=== PATIENT | female | born 1950 | race Caucasian/White ===

== ENCOUNTER 2018-01-20 19:36 | Emergency (ER) | END 2018-01-21 01:26 | disposition left against medical advice (07) ==

== ENCOUNTER 2018-01-21 05:20 | Inpatient (IN) | END 2018-01-23 13:39 | disposition home or self-care (01) | DRG 419 ==

== ENCOUNTER 2018-02-13 09:33 | Outpatient (CLI) | END 2018-02-13 15:47 | disposition home or self-care (01) ==

== ENCOUNTER 2019-04-24 14:22 | Inpatient (IN) | payer OTHER ==
[~2019-04-24] VITALS: Ht 147.3 cm; Wt 70.9 kg
[~2019-04-24 14:22] MED LIST: ALBU18HF INHALATION; AMIT25TA9 PO; AMLO5TAB4 PO; BECL8.7A5 INH; CHOL500051 PO; FLUT16SP17 NASAL; GABA-526 PO; HYDR25TA6 PO; IBUP-1542 PO; LORA-186 PO; LOSA100T15 PO; MAG355OR15 PO; MONT10TA21 PO; OMEP40CA6 PO; PULM90 INHALATION
[2019-04-24] MEDS ORDERED: NITROGLYCERIN 2% 1 GM OINT PKT TD STA (15:16)
[2019-04-24] MEDS ORDERED: morphine 4 MG/ML VIAL IV STA (15:16)
[2019-04-24] MEDS ORDERED: ONDANSETRON 4 MG INJ IV STA (15:16)
[2019-04-24] MEDS ORDERED: ASPIRIN 325 MG TAB PO STA (15:16)
[2019-04-24] MEDS ORDERED: SOD CHLORIDE 0.9% 500 ML IV STA (15:16)
[2019-04-24] MEDS ORDERED: BECL10.62 IH (15:58)
[2019-04-24] MEDS ORDERED: ALBU18HF INHALATION (15:58)
[2019-04-24] MEDS ORDERED: AMIT25TA9 PO (15:59)
[2019-04-24] MEDS ORDERED: CHOL100062 PO (15:59)
[2019-04-24] MEDS ORDERED: GABA-526 PO (15:59)
[2019-04-24] MEDS ORDERED: LOSA100T15 PO (16:00)
[2019-04-24] MEDS ORDERED: MONT10TA24 PO (16:00)
[2019-04-24] MEDS ORDERED: FLUT16SP17 NASAL (16:01)
[2019-04-24] MEDS ORDERED: HYDR25TA6 PO (16:01)
[2019-04-24] MEDS ORDERED: LORA10TA3 PO (16:02)
[2019-04-24] MEDS ORDERED: AMLO5TAB4 PO (16:03)
[2019-04-24] MEDS ORDERED: FLOV110 INHALATION (16:04)
[2019-04-24] MEDS ORDERED: IOHEXOL 100 ML ONE (17:43)
[2019-04-24] MEDS ORDERED: SOD CHLORIDE 0.9% 100 ML ONE (17:43)
[2019-04-24] MEDS ORDERED: ONDANSETRON 4 MG INJ IV PRN ×2 (19:00→20:30)
[2019-04-24] MEDS ORDERED: ACETAMINOPHEN 325 MG TAB PO PRN (19:00)
--- NOTE | 2019-04-24 19:09 | ERD ---
ER Documentation Chief Complaint Chief Complaint LEFT FACIAL NUMBESS AND TINGLING; CHEST PAIN LWKT- 0700 THIS AM HPI Very pleasant 68-year-old female presents to the emergency room complaining of chest pain. A in person drop pit worker was used. The patient states that over the last several days she has noted some chest discomfort in the left side of her chest with associated numbness and tingling to the left jaw and left upper ex tremity. She denies any slurred speech or motor weakness. She denies any vision changes. Her chest pain is pressure-like and present currently. No prior history of cardiac etiology. No significant exertional symptoms. ROS All systems reviewed and are negative except as per history of present illness. Medications Home Meds Reported Medications Fluticasone Propionate* (Flovent* HFA 110) 12 Gm Inha, 1 PUFF INHALATION BID, #1 INHALER 04/24/19 Amlodipine Besylate* (Norvasc*) 5 Mg Tablet, 5 MG PO DAILY, TAB 04/24/19 Loratadine* (Loratadine*) 10 Mg Tablet, 10 MG PO DAILY, #30 TAB 04/24/19 Fluticasone Propionate* (Fluticasone Propionate* Nasal) 50 Mcg/[place] - 16 Gm [place].susp, 1 SPRAY NASAL DAILY, #1 BOTTLE TO EACH NOSTRIL 04/24/19 Hydrochlorothiazide* (Hydrochlorothiazide*) 25 Mg Tab, 25 MG PO DAILY, #30 TAB 04/24/19 Losartan Potassium* (Losartan Potassium*) 100 Mg Tablet, 100 MG PO DAILY, TAB 04/24/19 Montelukast Sodium* (Montelukast Sodium*) 10 Mg Tablet, 10 MG PO QHS, #30 TAB 04/24/19 Cholecalciferol* (Vitamin D3*) 1,000 Unit Tablet, 1000 UNIT PO DAILY, TAB 04/24/19 Gabapentin* (Gabapentin*) 600 Mg Tablet, 600 MG PO TID, #90 TAB 04/24/19 Amitriptyline Hcl* (Amitriptyline Hcl*) 25 Mg Tablet, 25 MG PO QHS, #30 TAB 04/24/19 Beclomethasone Dipropionate (Qvar Redihaler (80 MCG)) 10.6 Gm Hfa.aeroba, 10.6 GM IH BID, INH 04/24/19 Albuterol Sulfate* (Ventolin HFA*) 18 Gm Hfa.aer.ad, 2 PUFF INHALATION Q4H, #1 INHALER 04/24/19 Discontinued Reported Medications Cholecalciferol (Vitamin D3) (Vitamin D3) 50,000 Unit Capsule, 50789 UNIT PO, CAP Pt takes once a week 01/21/18 Amitriptyline Hcl* (Amitriptyline Hcl*) 25 Mg Tablet, 25 MG PO QHS, #30 TAB 01/21/18 Ibuprofen* (Ibuprofen*) 600 Mg Tablet, 600 MG PO Q8, TAB 01/21/18 Beclomethasone Dip* (Qvar 80*) 7.3 Gm Inha, 2 PUFF INH BID, #1 INHALER 01/21/18 Albuterol Sulfate* (Ventolin HFA*) 18 Gm Hfa.aer.ad, 2 PUFF INHALATION Q4H, #1 INHALER 01/21/18 Gabapentin* (Gabapentin*) 600 Mg Tablet, 600 MG PO TID, #90 TAB 01/21/18 Losartan Potassium* (Losartan Potassium*) 100 Mg Tablet, 100 MG PO DAILY, TAB 01/21/18 Hydrochlorothiazide (Hydrochlorothiazide) 25 Mg Tablet, 25 MG PO DAILY, #30 TAB 01/21/18 Fluticasone Propionate* (Fluticasone Propionate* Nasal) 50 Mcg/[place] - 16 Gm [place].susp, 2 SPRAYS NASAL DAILY, #1 BOTTLE TO EACH NOSTRIL 01/21/18 Omeprazole* (Omeprazole*) 40 Mg Capsule.dr, 40 MG PO DAILY, #30 CAP 01/21/18 Budesonide* (Pulmicort* Flexhaler) 90 Mcg Aer.pow.ba, 1 PUFF INHALATION BID, #1 EA 01/21/18 Loratadine* (Claritin*) 10 Mg Tablet, 10 MG PO DAILY, TAB 11/13/15 Montelukast Sodium* (Singulair*) 10 Mg Tablet, 10 MG PO QHS, #30 TAB 11/13/15 Amlodipine Besylate* (Norvasc*) 5 Mg Tablet, 5 MG PO DAILY, TAB 11/13/15 Discontinued Scripts Mag Hydrox/Al Hydrox/Simeth (Maalox Max Strength Susp) 769 Ml Oral.susp, 30 ML PO QID, #769 Prov:YUAN MORA MD 11/13/15 Allergies Allergies: Coded Allergies: Penicillins (Verified Allergy, Unknown, 04/24/19) shellfish derived (Verified Allergy, Unknown, "CLOSING OF THE THROAT", 04/24/19) Uncoded Allergies: SEA FOODS (Allergy, Unknown, 11/13/15) PMhx/Soc History of Surgery: Yes (ligation 42 years ago) Anesthesia Reaction: No Hx Neurological Disorder: No Hx Respiratory Disorders: No Hx Cardiac Disorders: Yes (on BP meds) Hx Psychiatric Problems: No Hx Miscellaneous Medical Probl: No Hx Alcohol Use: No Hx Substance Use: No Hx Tobacco Use: No Smoking Status: Never smoker FmHx Family History: No diabetes Physical Exam Vitals Vital Signs Date Temp Pulse Resp B/P (MAP) Pulse Ox O2 O2 Flow FiO2 Time Delivery Rate 04/24/19 59 18 109/62 96 Room Air 17:55 (78) 04/24/19 63 18 101/51 96 Room Air 16:30 (68) 04/24/19 Nasal 2 15:35 Cannula 04/24/19 73 18 128/54 100 Nasal 2.0 15:30 (78) Cannula 04/24/19 98.5 82 19 130/61 95 14:24 (84) Physical Exam General: Well developed, well nourished, no acute distress Head: Normocephalic, atraumatic. Eyes: Pupils equally reactive, EOM intact ENT: Moist mucous membranes Neck: Supple, no lymphadenopathy Respiratory: Lungs clear bilaterally, no distress Cardiovascular: RRR, no murmurs, rubs, or gallops Abdominal: Soft, non-tender, non-distended, no peritoneal signs : Deferred MSK: No edema, no unilateral swelling, 5/5 strength Neurologic: Alert and oriented, moving all extremities, normal speech, no focal weakness, no cerebellar signs Skin: No rash Psych: Normal mood Result Diagram: 04/24/19 1511 04/24/19 1511 Results 24 hrs Laboratory Tests Test 04/24/19 15:11 04/24/19 15:46 White Blood Count 6.0 10^3/ul Red Blood Count 4.02 10^6/ul Hemoglobin 11.4 g/dl Hematocrit 35.3 % Mean Corpuscular Volume 87.8 fl Mean Corpuscular Hemoglobin 28.4 pg Mean Corpuscular Hemoglobin Concent 32.3 g/dl Red Cell Distribution Width 13.4 % Platelet Count 226 10^3/UL Mean Platelet Volume 11.7 fl Immature Granulocytes % 0.300 % Neutrophils % 65.8 % Lymphocytes % 22.6 % Monocytes % 8.5 % Eosinophils % 2.3 % Basophils % 0.5 % Nucleated Red Blood Cells % 0.0 /100WBC Immature Granulocytes # 0.020 10^3/ul Neutrophils # 3.9 10^3/ul Lymphocytes # 1.4 10^3/ul Monocytes # 0.5 10^3/ul Eosinophils # 0.1 10^3/ul Basophils # 0.0 10^3/ul Nucleated Red Blood Cells # 0.0 10^3/ul Sodium Level 137 mmol/L Potassium Level 4.1 mmol/L Chloride Level 102 mmol/L Carbon Dioxide Level 27 mmol/L Anion Gap 8 Blood Urea Nitrogen 20 mg/dl Creatinine 0.69 mg/dl Est Glomerular Filtrat Rate mL/min > 60 mL/min Glucose Level 107 mg/dl Calcium Level 8.9 mg/dl Troponin I < 0.012 ng/ml Prothrombin Time 12.5 Sec Prothrombin Time Ratio 1.0 INR International Normalized Ratio 0.92 Activated Partial Thromboplast Time 25.1 Sec D-Dimer 1064.76 ng/ml D-Dimer Comment Current Medications Medications Dose Sig/Adán Start Time Status Last (Trade) Ordered Route PRN Stop Time Admin Dose Reason Admin Sodium 500 ml @ Q1H STAT 04/24/19 DC 04/24/19 Chloride 500 mls/hr IV 15:16 15:27 04/24/19 16:15 Aspirin 325 mg ONCE STAT 04/24/19 DC 04/24/19 (Aspirin) PO 15:16 15:27 04/24/19 15:18 1 inch ONCE STAT 04/24/19 DC 04/24/19 Nitroglycerin TD 15:16 15:27 04/24/19 15:18 (Nitroglyceri n 2% Oint) Morphine 4 mg ONCE STAT 04/24/19 DC 04/24/19 Sulfate IV 15:16 15:27 (morphine) 04/24/19 15:18 Ondansetron 4 mg ONCE STAT 04/24/19 DC 04/24/19 HCl (Zofran IV 15:16 15:26 Inj) 04/24/19 15:18 IV Flush 10 ml STK-MED 04/24/19 DC (NS 10 ml) ONCE .ROUTE 17:43 04/24/19 17:44 Sodium 100 ml @ ud STK-MED 04/24/19 DC Chloride ONCE .ROUTE 17:43 04/24/19 17:44 Iohexol 100 ml @ ud STK-MED 04/24/19 DC ONCE .ROUTE 17:43 04/24/19 17:44 Ondansetron 4 mg ER BRIDGE 04/24/19 HCl (Zofran PRN IV 19:00 Inj) NAUSEA/VOMITI 04/25/19 18:59 NG 650 mg ER BRIDGE 04/24/19 Acetaminophen PRN PO 19:00 (Tylenol .MILD PAIN 04/25/19 18:59 Tab) 1-3 OR TEMP Procedures/MDM EKG, MONITORS, & DIAGNOSTIC IMAGING: EKG: I reviewed and interpreted a 12-lead EKG. Rhythm: Normal sinus rhythm, bifascicular block ST Changes: No contiguous ST segment elevations T waves: No contiguous T wave inversions Impression: No evidence of acute cardiac ischemia Repeat EKG: EKG: I reviewed and interpreted a 12-lead EKG. Rhythm: Normal sinus rhythm, bifascicular block ST Changes: No contiguous ST segment elevations T waves: No contiguous T wave inversions Impression: No evidence of acute cardiac ischemia Chest x-ray: I reviewed and interpreted a 1 view of the chest Mediastinum: No enlargement Cardiac silhouette: No cardiomegaly Airspace: Clear lung barrios bilaterally without evidence of pneumothorax Bones: No evidence of fracture VQ scan is pending: To be followed by admitting team PROCEDURES: None LAB INTERPRETATION: * Positive d-dimer, negative troponin MEDICAL DECISION MAKING: The patient's history, physical exam and clinical presentation is concerning for possible cardiogenic etiology and acute coronary syndrome. The patient does describe some mild pleuritic component to this. Therefore a d-dimer would be appropriate given Wells low risk criteria. The patient describes paresthesias but this is very consistent more with cardiac etiology rather than stroke or central nervous system process. She has a nonfocal neurologic exam and her presentation description of the symptoms are not consistent with stroke. Based on the patient's clinical exam and history and risk factors, I have a much lower clinical concern for acute aortic dissection, pneumothorax, pneumonia, cardiac tamponade HEART Score: 4 MACE Rate: 16.6% Shared Decision Making: We had a conversation regarding risk stratification, MACE rate, and the risks, benefits, alternatives of disposition planning options. Disposition planning: Admit to rule out ACS ER COURSE: * Aspirin nitro morphine provided with improved to the otology. The patient is a positive d-dimer. The patient thinks he might be allergic to iodine contrast therefore CTA was canceled and the patient will be admitted for VQ scan. No indication for emergent anticoagulation at this time given low pretest probability for pulmonary embolism. * Patient and family were updated. She is chest pain-free. CONSULTATION: None DISPOSITION PLAN: Telemetry admission for management of chest pain to rule out acute coronary syndrome, serial enzymes, risk stratification and consideration of provocative testing CONSULTATION: Accepting care team and consultations: I discussed the current laboratory data, diagnostic imaging and emergency care provided. Admitting team: Dr. Sharpe Admitting team indication: Insurance directed Departure Diagnosis: Primary Impression: Chest pain Chest pain type: unspecified Qualified Codes: R07.9 - Chest pain, unspecified Condition: Stable FLORIN ENAMORADO MD April 24, 2019 19:09
[2019-04-24] MEDS ORDERED: DOCUSATE SODIUM 100 MG CAP PO PRN (20:30)
[2019-04-24] MEDS ORDERED: BISACODYL (EC) 5 MG TAB PO PRN (20:30)
[2019-04-24] MEDS ORDERED: NACL 0.9% 3 ML SYG IV SCH (20:30)
[2019-04-24] MEDS ORDERED: NITROGLYCERIN (SL) 0.4 MG TAB SL PRN (20:30)
[2019-04-25] VITALS (14 sets, daily range): BP systolic 96–137; BP diastolic 52–67; PULSE 58–87; RESP 18–20; Ht 147.3 cm; Wt 70.9 kg
--- NOTE | 2019-04-25 03:24 | HP ---
Date/Time of Note Date/Time of Note DATE: 04/25/19 TIME: 03:24 Assessment/Plan VTE Prophylaxis Pharmacological prophylaxis: LMWH Lines/Catheters IV Catheter Type (from [facility]): [facility] Assessment/Plan Hospital Course This is a 68-year-old female being admitted to the telemetry floor for observation for: #1 chest pain: Rule out ACS versus pulmonary embolism. D-dimer in the emergency department was elevated. Cardiac enzymes x3, the first that was negative. D- dimer 1000+, will check an echocardiogram. EKG does show prolonged QT and a right bundle branch block. Will consult cardiology . We will check hemoglobin A C, lipid panel, TSH. VQ scan was also ordered by the emergency department await the results. #2 elevated d-dimer: Venous bilateral lower extremity ultrasound did not show any acute DVTs, there was a Ravi's cyst. In the meantime we will give a dose of therapeutic Lovenox while we await the results of the VQ scan. #3 hypertension: Resume patient's home medications #4 asthma: Currently not in any respiratory distress. PRN inhalers as indicated #5 DVT GI prophylaxis: Lovenox, no GI prophylaxis indicated Further treatment strategy will be implemented as per the clinical course. Result Diagram: 04/24/19 1511 04/24/19 1511 Results 24hrs Laboratory Tests Test 04/24/19 15:11 04/24/19 15:46 04/24/19 21:39 White Blood Count 6.0 # Red Blood Count 4.02 L Hemoglobin 11.4 L Hematocrit 35.3 L Mean Corpuscular Volume 87.8 Mean Corpuscular Hemoglobin 28.4 L Mean Corpuscular Hemoglobin Concent 32.3 Red Cell Distribution Width 13.4 Platelet Count 226 Mean Platelet Volume 11.7 H Immature Granulocytes % 0.300 Neutrophils % 65.8 Lymphocytes % 22.6 Monocytes % 8.5 Eosinophils % 2.3 Basophils % 0.5 Nucleated Red Blood Cells % 0.0 Immature Granulocytes # 0.020 Neutrophils # 3.9 Lymphocytes # 1.4 Monocytes # 0.5 Eosinophils # 0.1 Basophils # 0.0 Nucleated Red Blood Cells # 0.0 Sodium Level 137 Potassium Level 4.1 Chloride Level 102 Carbon Dioxide Level 27 Anion Gap 8 Blood Urea Nitrogen 20 Creatinine 0.69 Est Glomerular Filtrat Rate mL/min > 60 Glucose Level 107 Calcium Level 8.9 Troponin I < 0.012 < 0.012 Prothrombin Time 12.5 Prothrombin Time Ratio 1.0 INR International Normalized Ratio 0.92 Activated Partial Thromboplast Time 25.1 D-Dimer 1064.76 H D-Dimer Comment Creatine Kinase 60 Creatine Kinase Index 1.6 Creatinine Kinase MB (Mass) 0.96 HPI/ROS Admit Date/Time Admit Date/Time April 24, 2019 at 18:53 Hx of Present Illness Chief complaint: Chest pain this is a 60-year-old female who presented to the emergency department complaining of chest pain. Patient reported that over the last couple days she has had left-sided chest pain with radiation down the left arm as well as to the jaw. She has had associated numbness and tingling. She denies any slurred speech or loss of limb function or weakness. Patient reports that the pain was a pressure-like sensation. She denies any lower extremity edema or shortness of breath. Allergies: Penicillin, shellfish Medications: See MEET TORRES Const: As per HPI s Eyes : No pain discharge or redness or change in visual acuity ENT: No pain, sore throat, congestion, congestion, dysphagia or discharge Respiratory: No shortness of breath, cough, sputum, wheezing, or pleuritic pain Cardiovascular: As per HPI GI : no change in appetite, abdominal pain, nausea, vomiting, diarrhea, constipation, or change in the color his stool Genitourinary: No dysuria, hematuria, flank pain , discharge or CVA tenderness Musculoskeletal: No joint pain, back pain, neck pain, restricted range of motion in neck or joints Skin: No rash, bruising or hives Neuro: No headache, dizziness, syncope, seizure, focal weakness Endocrine: No polyuria, polydipsia, temperature intolerance Psych: No hallucination, depression, anxiety or suicidal ideation PMH/Family/Social Past Medical History Hypertension, asthma Medications Current Medications Ondansetron HCl (Zofran Inj) 4 mg ER BRIDGE PRN IV NAUSEA/VOMITING; Start 04/24/19 at 19:00; Stop 04/25/19 at 18:59 Acetaminophen (Tylenol Tab) 650 mg ER BRIDGE PRN PO .MILD PAIN 1-3 OR TEMP; Start 04/24/19 at 19:00; Stop 04/25/19 at 18:59 IV Flush (NS 3 ml) 3 ml PER PROTOCOL IV ; Start 04/24/19 at 20:30 Ondansetron HCl (Zofran Inj) 4 mg Q6H PRN IV NAUSEA/VOMITING; Start 04/24/19 at 20:30 Nitroglycerin (Nitroglycerin (Sl Tab) 0.4 Mg) 1 tab Q5M PRN SL .CHEST PAIN; Start 04/24/19 at 20:30 Acetaminophen (Tylenol Tab) 650 mg Q6H PRN PO .PAIN 1-3 OR TEMP; Start 04/24/19 at 20:30 Docusate Sodium (Colace) 100 mg Q12H PRN PO .CONSTIPATION; Start 04/24/19 at 20:30 Bisacodyl (Dulcolax) 5 mg DAILY PRN PO .CONSTIPATION; Start 04/24/19 at 20:30 Coded Allergies: Penicillins (Verified Allergy, Unknown, 04/24/19) shellfish derived (Verified Allergy, Unknown, "CLOSING OF THE THROAT", 04/24/19) Uncoded Allergies: SEA FOODS (Allergy, Unknown, 11/13/15) Past Surgical History Cholecystectomy, hysterectomy Past Surgical Hx: other Family History Significant Family History: no pertinent family hx Social History Alcohol Use: none Smoking Status: Never smoker Drug Use: none Exam/Review of Systems Vital Signs Vitals Vital Signs Date Temp Pulse Resp B/P (MAP) Pulse Ox O2 O2 Flow FiO2 Time Delivery Rate 04/25/19 69 01:48 04/25/19 97.7 18 110/59 97 Room Air 01:19 (76) 04/24/19 2 15:35 Exam Exam General: Patient is a pleasant female currently lying in bed in no acute distress HEENT: Atraumatic, normocephalic. The pupils are equal, round and reactive. Extraocular motor are intact Neck: Supple with full range of motion. No rigidity or meningismus Chest: Nontender Lungs: Clear to auscultation bilaterally no crackles rales or wheezing Heart: Normal S1-S2, Regular rhythm and rate. No murmur, S3, or S4 Abdomen: Obese, soft , nontender, nondistended , bowel sounds are present. No guarding no rebound tenderness , No masses or organomegaly. No costovertebral temporal angle mass Extremities: Normal to inspection, no edema no cyanosis Neurologic: Normal mental status, speech normal, cranial nerves II through XII are intact, motor and sensory are intact, Additional Comments PROCEDURE: US Lower extremity Venous. CLINICAL INDICATION: Bilateral lower extremity edema TECHNIQUE: Multiple sonographic images of the bilateral lower extremity deep venous system was obtained utilizing grayscale, color-flow, compressive sonography and doppler imaging with augmentation. The images were reviewed on a PACS workstation. COMPARISON: None. FINDINGS: There is normal compressibility and flow within the right common femoral, femoral , posterior tibial and popliteal veins. There is normal compressibility and flow within the left common femoral, femoral , posterior tibial and popliteal veins. There is a 2.5 cm left popliteal Ravi's cyst. RPTAT: AA IMPRESSION: No sonographic evidence for deep venous thrombosis. Left popliteal Ravi's cyst. .Brett Leon MD, Date Time Electronically viewed and signed by .Brett Leon MD, MD on 04/24/2019 20:53 .S/ CC: DEEPTHI KIMBLE [id number] PROCEDURE: XR Chest. CLINICAL INDICATION: Chest pain. TECHNIQUE: Portable AP upright view of the chest was obtained. COMPARISON: CR CHEST 01/21/2018 FINDINGS: The cardiomediastinal silhouette is mildly enlarged . Prominent paratracheal soft tissues on the right are less conspicuous again believed to reflect va sculature, less likely a substernal thyroid goiter. The trachea and bronchi are patent The lungs are clear. There is no evidence for pleural effusion, pneumothorax or pulmonary vascular congestion. The osseous structures are intact with no evidence for acute abnormality. Calcification of the thoracic aorta is noted. RPTAT:HJJR IMPRESSION: Stable mild cardiac silhouette enlargement the less conspicuous right paratracheal density without evidence for acute intrathoracic pathology. Physician Hayley Date Time Electronically viewed and signed by Physician Hayley on 04/24/2019 16:33 JR/ CC: FLORIN ENAMORADO MD [phone] Repeat EKG: EKG: Rhythm: Normal sinus rhythm, bifascicular block ST Changes: No contiguous ST segment elevations T waves: No contiguous T wave inversions Impression: No evidence of acute cardiac ischemia DEEPTHI KIMBLE April 25, 2019 03:24
[2019-04-25] MEDS ORDERED: ENOXAPARIN 80 MG/0.8 ML SYG SC ONE (05:30)
--- NOTE | 2019-04-25 12:50 | CONS ---
Assessment/Plan Assessment/Plan Hospital Course (Demo Recall) Chest pain Hypertension Asthma -Patient with chest pain yesterday with left arm pain and ear pain. Initial cardiac enzymes are negative, initial ECG with no significant ischemic abnormalities -Patient underwent VQ scan today and low probability for pulmonary emboli -Echocardiogram pending, further recommendation forthcoming as more information is available Consultation Date/Type/Reason Admit Date/Time April 24, 2019 at 18:53 Type of Consult Cardiology Reason for Consultation Chest pain Date/Time of Note DATE: 04/25/19 TIME: 12:46 Hx of Present Illness This is a 68-year-old female with past medical history of hypertension, asthma who presents with left-sided chest pain. Chest pain began yesterday when she was in the market. Pain was sharp and occasional heavy like in the chest. She also felt pain in her left ear and her left arm. She is unsure if she had sh ortness of breath. Pain was coming and going. Once patient got to emergency room and after some time, her pain resolved. She denies any recurrent chest pain since then. Prior to this, she denies exertional chest pain, shortness of breath. 12 point review of systems was performed with all pertinent positives and negatives mentioned above and all else is negative Past Medical History Asthma Hypertension Home Meds Reported Medications Fluticasone Propionate* (Flovent* HFA 110) 12 Gm Inha, 1 PUFF INHALATION BID, #1 INHALER 04/24/19 Amlodipine Besylate* (Norvasc*) 5 Mg Tablet, 5 MG PO DAILY, TAB 04/24/19 Loratadine* (Loratadine*) 10 Mg Tablet, 10 MG PO DAILY, #30 TAB 04/24/19 Fluticasone Propionate* (Fluticasone Propionate* Nasal) 50 Mcg/[place] - 16 Gm [place].susp, 1 SPRAY NASAL DAILY, #1 BOTTLE TO EACH NOSTRIL 04/24/19 Hydrochlorothiazide* (Hydrochlorothiazide*) 25 Mg Tab, 25 MG PO DAILY, #30 TAB 04/24/19 Losartan Potassium* (Losartan Potassium*) 100 Mg Tablet, 100 MG PO DAILY, TAB 04/24/19 Montelukast Sodium* (Montelukast Sodium*) 10 Mg Tablet, 10 MG PO QHS, #30 TAB 04/24/19 Cholecalciferol* (Vitamin D3*) 1,000 Unit Tablet, 1000 UNIT PO DAILY, TAB 04/24/19 Gabapentin* (Gabapentin*) 600 Mg Tablet, 600 MG PO TID, #90 TAB 04/24/19 Amitriptyline Hcl* (Amitriptyline Hcl*) 25 Mg Tablet, 25 MG PO QHS, #30 TAB 04/24/19 Beclomethasone Dipropionate (Qvar Redihaler (80 MCG)) 10.6 Gm Hfa.aeroba, 10.6 GM IH BID, INH 04/24/19 Albuterol Sulfate* (Ventolin HFA*) 18 Gm Hfa.aer.ad, 2 PUFF INHALATION Q4H, #1 INHALER 04/24/19 Discontinued Reported Medications Cholecalciferol (Vitamin D3) (Vitamin D3) 50,000 Unit Capsule, 15027 UNIT PO, CAP Pt takes once a week 01/21/18 Amitriptyline Hcl* (Amitriptyline Hcl*) 25 Mg Tablet, 25 MG PO QHS, #30 TAB 01/21/18 Ibuprofen* (Ibuprofen*) 600 Mg Tablet, 600 MG PO Q8, TAB 01/21/18 Beclomethasone Dip* (Qvar 80*) 7.3 Gm Inha, 2 PUFF INH BID, #1 INHALER 01/21/18 Albuterol Sulfate* (Ventolin HFA*) 18 Gm Hfa.aer.ad, 2 PUFF INHALATION Q4H, #1 INHALER 01/21/18 Gabapentin* (Gabapentin*) 600 Mg Tablet, 600 MG PO TID, #90 TAB 01/21/18 Losartan Potassium* (Losartan Potassium*) 100 Mg Tablet, 100 MG PO DAILY, TAB 01/21/18 Hydrochlorothiazide (Hydrochlorothiazide) 25 Mg Tablet, 25 MG PO DAILY, #30 TAB 01/21/18 Fluticasone Propionate* (Fluticasone Propionate* Nasal) 50 Mcg/[place] - 16 Gm [place].susp, 2 SPRAYS NASAL DAILY, #1 BOTTLE TO EACH NOSTRIL 01/21/18 Omeprazole* (Omeprazole*) 40 Mg Capsule.dr, 40 MG PO DAILY, #30 CAP 01/21/18 Budesonide* (Pulmicort* Flexhaler) 90 Mcg Aer.pow.ba, 1 PUFF INHALATION BID, #1 EA 01/21/18 Loratadine* (Claritin*) 10 Mg Tablet, 10 MG PO DAILY, TAB 11/13/15 Montelukast Sodium* (Singulair*) 10 Mg Tablet, 10 MG PO QHS, #30 TAB 11/13/15 Amlodipine Besylate* (Norvasc*) 5 Mg Tablet, 5 MG PO DAILY, TAB 11/13/15 Discontinued Scripts Mag Hydrox/Al Hydrox/Simeth (Maalox Max Strength Susp) 769 Ml Oral.susp, 30 ML PO QID, #769 Prov:UYAN MORA MD 11/13/15 Medications Current Medications Ondansetron HCl (Zofran Inj) 4 mg ER BRIDGE PRN IV NAUSEA/VOMITING; Start 04/24/19 at 19:00; Stop 04/25/19 at 18:59 Acetaminophen (Tylenol Tab) 650 mg ER BRIDGE PRN PO .MILD PAIN 1-3 OR TEMP Last administered on 04/25/19at 06:18; Admin Dose 650 MG; Start 04/24/19 at 19:00; Stop 04/25/19 at 18:59 IV Flush (NS 3 ml) 3 ml PER PROTOCOL IV ; Start 04/24/19 at 20:30 Ondansetron HCl (Zofran Inj) 4 mg Q6H PRN IV NAUSEA/VOMITING; Start 04/24/19 at 20:30 Nitroglycerin (Nitroglycerin (Sl Tab) 0.4 Mg) 1 tab Q5M PRN SL .CHEST PAIN; Start 04/24/19 at 20:30 Acetaminophen (Tylenol Tab) 650 mg Q6H PRN PO .PAIN 1-3 OR TEMP; Start 04/24/19 at 20:30 Docusate Sodium (Colace) 100 mg Q12H PRN PO .CONSTIPATION; Start 04/24/19 at 20:30 Bisacodyl (Dulcolax) 5 mg DAILY PRN PO .CONSTIPATION; Start 04/24/19 at 20:30 Allergies: Coded Allergies: Penicillins (Verified Allergy, Unknown, 04/24/19) shellfish derived (Verified Allergy, Unknown, "CLOSING OF THE THROAT", 04/24/19) Uncoded Allergies: SEA FOODS (Allergy, Unknown, 11/13/15) Past Surgical History Past Surgical Hx: other Social History Alcohol Use: none Smoking Status: Never smoker Drug Use: none Exam/Review of Systems Vital Signs Vitals Vital Signs Date Temp Pulse Resp B/P (MAP) Pulse Ox O2 O2 Flow FiO2 Time Delivery Rate 04/25/19 61 12:39 04/25/19 98.6 20 129/67 97 Room Air 10:57 (87) 04/24/19 2 15:35 Intake and Output 04/24/19 04/24/19 04/25/19 1515:00 23:00 07:00 IntakeIntake Total 400 ml BalanceBalance 400 ml Exam Constitutional: alert, oriented (No apparent distress) Head: normocephalic Respiratory: clear to auscultation, normal air movement Cardiovascular: regular rate and rhythm (S1-S2 heard) Gastrointestinal: soft, non-tender, bowel sounds Extremities: edema Labs Result Diagram: 04/25/19 0308 04/25/19 0308 Results 24hrs Laboratory Tests Test 04/24/19 15:11 04/24/19 15:46 04/24/19 21:39 04/25/19 03:08 White Blood Count 6.0 # 4.9 Red Blood Count 4.02 L 4.09 L Hemoglobin 11.4 L 11.6 L Hematocrit 35.3 L 36.1 L Mean Corpuscular 87.8 88.3 Volume Mean Corpuscular 28.4 L 28.4 L Hemoglobin Mean Corpuscular 32.3 32.1 Hemoglobin Concent Red Cell 13.4 13.3 Distribution Width Platelet Count 226 219 Mean Platelet Volume 11.7 H 11.3 H Immature 0.300 0.400 Granulocytes % Neutrophils % 65.8 60.1 Lymphocytes % 22.6 24.9 Monocytes % 8.5 9.5 Eosinophils % 2.3 4.5 Basophils % 0.5 0.6 Nucleated Red Blood 0.0 0.0 Cells % Immature 0.020 0.020 Granulocytes # Neutrophils # 3.9 2.9 Lymphocytes # 1.4 1.2 Monocytes # 0.5 0.5 Eosinophils # 0.1 0.2 Basophils # 0.0 0.0 Nucleated Red Blood 0.0 0.0 Cells # Sodium Level 137 143 Potassium Level 4.1 3.9 Chloride Level 102 105 Carbon Dioxide Level 27 31 Anion Gap 8 7 Blood Urea Nitrogen 20 16 Creatinine 0.69 0.71 Est Glomerular > 60 > 60 Filtrat Rate mL/min Glucose Level 107 108 Calcium Level 8.9 9.2 Troponin I < 0.012 < 0.012 < 0.012 Prothrombin Time 12.5 Prothrombin Time 1.0 Ratio INR International 0.92 Normalized Ratio Activated 25.1 Partial Thromboplast Time D-Dimer 1064.76 H D-Dimer Comment Creatine Kinase 60 47 Creatine Kinase 1.6 2.1 Index Creatinine Kinase MB 0.96 1.01 (Mass) Hemoglobin A1c 5.9 Magnesium Level 2.1 Total Bilirubin 0.4 Direct Bilirubin 0.00 Indirect Bilirubin 0.4 Aspartate Amino 22 Transf (AST/SGOT) Alanine 18 Aminotransferase (AL T/SGPT) Alkaline Phosphatase 69 Total Protein 6.7 Albumin 3.9 Globulin 2.80 Albumin/Globulin 1.39 Ratio Triglycerides Level 225 H Cholesterol Level 169 LDL Cholesterol, 84 Calculated HDL Cholesterol 40 Cholesterol/HDL 4.2 Ratio Thyroid Stimulating 9.430 H Hormone (TSH) Imaging Imaging ECG demonstrates sinus bradycardia at 59 bpm, right bundle branch block, nonspecific ST abnormalities Medications Medications Current Medications Ondansetron HCl (Zofran Inj) 4 mg ER BRIDGE PRN IV NAUSEA/VOMITING; Start 04/24/19 at 19:00; Stop 04/25/19 at 18:59 Acetaminophen (Tylenol Tab) 650 mg ER BRIDGE PRN PO .MILD PAIN 1-3 OR TEMP Last administered on 04/25/19at 06:18; Admin Dose 650 MG; Start 04/24/19 at 19:00; Stop 04/25/19 at 18:59 IV Flush (NS 3 ml) 3 ml PER PROTOCOL IV ; Start 04/24/19 at 20:30 Ondansetron HCl (Zofran Inj) 4 mg Q6H PRN IV NAUSEA/VOMITING; Start 04/24/19 at 20:30 Nitroglycerin (Nitroglycerin (Sl Tab) 0.4 Mg) 1 tab Q5M PRN SL .CHEST PAIN; Start 04/24/19 at 20:30 Acetaminophen (Tylenol Tab) 650 mg Q6H PRN PO .PAIN 1-3 OR TEMP; Start 04/24/19 at 20:30 Docusate Sodium (Colace) 100 mg Q12H PRN PO .CONSTIPATION; Start 04/24/19 at 20:30 Bisacodyl (Dulcolax) 5 mg DAILY PRN PO .CONSTIPATION; Start 04/24/19 at 20:30 Ron Rodríguez DO April 25, 2019 12:50
--- NOTE | 2019-04-25 14:05 | RADRPT ---
Echocardiogram Report Patient Name: Manjit CLAROSnt ID: [id number] : 1950 (68y 10m)Study Date: 04/25/2019 9:55:08 AM Gender: FAccession #: [id number] Tech: Yudelka [facility] Location: 510-A Ref.Physician: DEEPTHI KIMBLE Height(Cm): BSA: Weight(Kg): Quality: AdequateOrder Physician: DEEPTHI KIMBLE Account #: Procedures: Echocardiographic Report: Transthoracic echocardiogram with complete 2D, M-Mode, and doppler examination. Indications: Chest Pain. Measurements: 2D/M Mode Doppler Measurement Value Normal Range Measurement Value Normal Range LVIDd 2D 3.8 [ 3.8 - 5.2 ] cm AV Peak Ash 1.6 [ 100.0 - 170.0 ] cm/sec LVIDs 2D 2.3 [ 2.2 - 3.5 ] cm AV Peak PG 10.0 [ 2.0 - 9.0 ] mmHg LVPWd 2D 0.8 [ 0.6 - 0.9 ] cm LVOT Peak Ash 1.3 [ 70.0 - 110.0 ] cm/sec IVSd 2D 1.3 [ 0.6 - 0.9 ] cm LVOT Peak PG 6.0 [ 2.0 - 6.0 ] mmHg AoR Diam 2D 2.5 [ 2.3 - 3.1 ] cm MV E Peak Ash 0.7 [ 60.0 - 130.0 ] cm/sec EDV 2D 60.4 [ 46.0 - 106.0 ] ml MV A Peak Ash 1.0 [ 100.0 - 120.0 ] cm/sec ESV 2D 18.9 [ 14.0 - 42.0 ] ml MV E/A 0.7 [ 0.8 - 1.5 ] ratio EF 2D 68.7 [ 54.0 - 74.0 ] percent MV Decel Time 271 [ 104 - 258 ] msec LA Dimen 2D 2.9 [ 2.7 - 3.8 ] cm Lat E` Ash 0.1 [ 10.0 - 15.0 ] cm/sec Lateral E/E` 5.9 [ 1.0 - 2.0 ] ratio MV E/A 0.7 [ 0.8 - 1.5 ] ratio TR Peak Ash 2.2 [ 100.0 - 280.0 ] cm/sec TR Peak PG 19.0 mmHg RVSP 22.0 [ 10.0 - 36.0 ] mmHg Findings: Left Ventricle: Normal left ventricular systolic function. Normal left ventricular cavity size. Sigmoid septum. Ejection fraction is visually estimated at 65 %. Tissue Doppler/Mitral Doppler indices are consistent with impaired relaxation (Stage I diastolic dysfunction). Right Ventricle: Normal right ventricular size. Normal right ventricular systolic function. Left Atrium: The left atrium is normal in size. Right Atrium: The right atrium is normal in size. Mitral Valve: Mild mitral leaflet calcification. Mild mitral annular calcification. Trace mitral regurgitation. Aortic Valve: No hemodynamically significant aortic stenosis by doppler. Aortic cusps appear mildly calcified. Tricuspid Valve: Normal appearance of the tricuspid valve. The estimated Peak RVSP is 22 mmHg. There is mild tricuspid regurgitation. Pericardium: Normal pericardium with no significant pericardial effusion. Aorta: Normal aortic root. IVC: Normal size and normal respiratory collapse consistent with normal right atrial pressure. Conclusions: Normal left ventricular systolic function. Normal left ventricular cavity size. Sigmoid septum. Ejection fraction is visually estimated at 65 %. Tissue Doppler/Mitral Doppler indices are consistent with impaired relaxation (Stage I diastolic dysfunction). Normal right ventricular size. Normal right ventricular systolic function. The left atrium is normal in size. The right atrium is normal in size. There is mild tricuspid regurgitation. No hemodynamically significant aortic stenosis by doppler. Trace mitral regurgitation. Normal pericardium with no significant pericardial effusion. Electronically Signed By: Ron Rodríguez 2019-04-25 14:04:24 PDT
--- NOTE | 2019-04-25 15:46 | PN ---
Date/Time of Note Date/Time of Note DATE: 04/25/19 TIME: 15:41 Assessment/Plan VTE Prophylaxis Risk score (from Nsg)>0 risk: 4 Pharmacological prophylaxis: LMWH Lines/Catheters IV Catheter Type (from Nrsg): Saline Lock Assessment/Plan Hospital Course This is a 68-year-old female being admitted to the telemetry floor for observation for: 1. Chest pain- rule out ACS and PE No evidence of ACS with negative troponins Cardiology consultation appreciated, follow-up on echo D-dimer was elevated but VQ scan shows low probability for PE, ultrasound of lower extremities did not show any DVTs A1c is normal, lipid profile was normal except for slightly elevated triglycerides 2. Hypothyroidism-newly diagnosed TSH is high Follow-up on remaining thyroid panel Endocrinology consultation with Dr. Zarina aquino 3. Hypertension Continue home meds 4. Asthma-stable As needed inhalers Prophylaxis: Lovenox DC planning: Follow-up on endocrinology recommendations, follow-up on echo and cardiology recommendations, anticipate DC home tomorrow Result Diagram: 04/25/19 0308 04/25/19 0308 Results 24hrs Laboratory Tests Test 04/24/19 15:46 04/24/19 21:39 04/25/19 03:08 Prothrombin Time 12.5 Prothrombin Time Ratio 1.0 INR International Normalized Ratio 0.92 Activated Partial Thromboplast Time 25.1 D-Dimer 1064.76 H D-Dimer Comment Creatine Kinase 60 47 Creatine Kinase Index 1.6 2.1 Creatinine Kinase MB (Mass) 0.96 1.01 Troponin I < 0.012 < 0.012 White Blood Count 4.9 Red Blood Count 4.09 L Hemoglobin 11.6 L Hematocrit 36.1 L Mean Corpuscular Volume 88.3 Mean Corpuscular Hemoglobin 28.4 L Mean Corpuscular Hemoglobin Concent 32.1 Red Cell Distribution Width 13.3 Platelet Count 219 Mean Platelet Volume 11.3 H Immature Granulocytes % 0.400 Neutrophils % 60.1 Lymphocytes % 24.9 Monocytes % 9.5 Eosinophils % 4.5 Basophils % 0.6 Nucleated Red Blood Cells % 0.0 Immature Granulocytes # 0.020 Neutrophils # 2.9 Lymphocytes # 1.2 Monocytes # 0.5 Eosinophils # 0.2 Basophils # 0.0 Nucleated Red Blood Cells # 0.0 Sodium Level 143 Potassium Level 3.9 Chloride Level 105 Carbon Dioxide Level 31 Anion Gap 7 Blood Urea Nitrogen 16 Creatinine 0.71 Est Glomerular Filtrat Rate mL/min > 60 Glucose Level 108 Hemoglobin A1c 5.9 Calcium Level 9.2 Magnesium Level 2.1 Total Bilirubin 0.4 Direct Bilirubin 0.00 Indirect Bilirubin 0.4 Aspartate Amino Transf (AST/SGOT) 22 Alanine Aminotransferase (ALT/SGPT) 18 Alkaline Phosphatase 69 Total Protein 6.7 Albumin 3.9 Globulin 2.80 Albumin/Globulin Ratio 1.39 Triglycerides Level 225 H Cholesterol Level 169 LDL Cholesterol, Calculated 84 HDL Cholesterol 40 Cholesterol/HDL Ratio 4.2 Thyroid Stimulating Hormone (TSH) 9.430 H Subjective 24 Hr Interval Summary Constitutional: no complaints Exam/Review of Systems Exam Vitals Vital Signs Date Temp Pulse Resp B/P (MAP) Pulse Ox O2 O2 Flow FiO2 Time Delivery Rate 04/25/19 98.3 64 20 137/62 96 Room Air 15:02 (87) 04/24/19 2 15:35 Intake and Output 04/24/19 04/24/19 04/25/19 1515:00 23:00 07:00 IntakeIntake Total 400 ml BalanceBalance 400 ml Constitutional: alert Respiratory: clear to auscultation Cardiovascular: regular rate and rhythm Gastrointestinal: soft; No distended Musculoskeletal: nl extremities to inspection Results Results 24hrs Laboratory Tests Test 04/24/19 15:46 04/24/19 21:39 04/25/19 03:08 Prothrombin Time 12.5 Prothrombin Time Ratio 1.0 INR International Normalized Ratio 0.92 Activated Partial Thromboplast Time 25.1 D-Dimer 1064.76 H D-Dimer Comment Creatine Kinase 60 47 Creatine Kinase Index 1.6 2.1 Creatinine Kinase MB (Mass) 0.96 1.01 Troponin I < 0.012 < 0.012 White Blood Count 4.9 Red Blood Count 4.09 L Hemoglobin 11.6 L Hematocrit 36.1 L Mean Corpuscular Volume 88.3 Mean Corpuscular Hemoglobin 28.4 L Mean Corpuscular Hemoglobin Concent 32.1 Red Cell Distribution Width 13.3 Platelet Count 219 Mean Platelet Volume 11.3 H Immature Granulocytes % 0.400 Neutrophils % 60.1 Lymphocytes % 24.9 Monocytes % 9.5 Eosinophils % 4.5 Basophils % 0.6 Nucleated Red Blood Cells % 0.0 Immature Granulocytes # 0.020 Neutrophils # 2.9 Lymphocytes # 1.2 Monocytes # 0.5 Eosinophils # 0.2 Basophils # 0.0 Nucleated Red Blood Cells # 0.0 Sodium Level 143 Potassium Level 3.9 Chloride Level 105 Carbon Dioxide Level 31 Anion Gap 7 Blood Urea Nitrogen 16 Creatinine 0.71 Est Glomerular Filtrat Rate mL/min > 60 Glucose Level 108 Hemoglobin A1c 5.9 Calcium Level 9.2 Magnesium Level 2.1 Total Bilirubin 0.4 Direct Bilirubin 0.00 Indirect Bilirubin 0.4 Aspartate Amino Transf (AST/SGOT) 22 Alanine Aminotransferase (ALT/SGPT) 18 Alkaline Phosphatase 69 Total Protein 6.7 Albumin 3.9 Globulin 2.80 Albumin/Globulin Ratio 1.39 Triglycerides Level 225 H Cholesterol Level 169 LDL Cholesterol, Calculated 84 HDL Cholesterol 40 Cholesterol/HDL Ratio 4.2 Thyroid Stimulating Hormone (TSH) 9.430 H Medications Medication Current Medications Ondansetron HCl (Zofran Inj) 4 mg ER BRIDGE PRN IV NAUSEA/VOMITING; Start 04/24/19 at 19:00; Stop 04/25/19 at 18:59 Acetaminophen (Tylenol Tab) 650 mg ER BRIDGE PRN PO .MILD PAIN 1-3 OR TEMP Last administered on 04/25/19at 06:18; Admin Dose 650 MG; Start 04/24/19 at 19:00; Stop 04/25/19 at 18:59 IV Flush (NS 3 ml) 3 ml PER PROTOCOL IV ; Start 04/24/19 at 20:30 Ondansetron HCl (Zofran Inj) 4 mg Q6H PRN IV NAUSEA/VOMITING; Start 04/24/19 at 20:30 Nitroglycerin (Nitroglycerin (Sl Tab) 0.4 Mg) 1 tab Q5M PRN SL .CHEST PAIN; Start 04/24/19 at 20:30 Acetaminophen (Tylenol Tab) 650 mg Q6H PRN PO .PAIN 1-3 OR TEMP; Start 04/24/19 at 20:30 Docusate Sodium (Colace) 100 mg Q12H PRN PO .CONSTIPATION; Start 04/24/19 at 20:30 Bisacodyl (Dulcolax) 5 mg DAILY PRN PO .CONSTIPATION; Start 04/24/19 at 20:30 NO ROJO April 25, 2019 15:46
[2019-04-25] MEDS: ACETAMINOPHEN 325 MG TAB PO PRN (23:24)
[2019-04-26] VITALS (8 sets, daily range): BP systolic 118–141; BP diastolic 55–71; PULSE 64–77; RESP 20
[2019-04-26] MEDS ORDERED: REGADENOSON 0.4 MG/5 ML SYG ONE (08:42)
[2019-04-26] MEDS ORDERED: ENOXAPARIN 40 MG/0.4 ML SYG SC SCH (09:00)
--- NOTE | 2019-04-26 10:04 | CONS ---
Assessment/Plan Assessment/Plan Assessment/Plan (Daily) Chest pain Hypertension Asthma -Patient with chest pain yesterday with left arm pain and ear pain. Initial cardiac enzymes are negative, initial ECG with no significant ischemic abnormalities -Patient underwent VQ scan today and low probability for pulmonary emboli -cardiolyte today > possible d/c planning Consultation Date/Type/Reason Admit Date/Time Apr 26, 2019 at 08:27 Initial Consult Date Type of Consult Cardiology Date/Time of Note DATE: 04/26/19 TIME: 10:04 24 HR Interval Summary Free Text/Dictation the patient stable and no pain Exam/Review of Systems Vital Signs Vitals Vital Signs Date Temp Pulse Resp B/P (MAP) Pulse Ox O2 O2 Flow FiO2 Time Delivery Rate 04/26/19 68 08:01 04/26/19 97.3 20 126/71 97 Room Air 07:46 (89) 04/24/19 2 15:35 Intake and Output 04/25/19 04/25/19 04/26/19 1515:00 23:00 07:00 IntakeIntake Total 720 ml BalanceBalance 720 ml Labs Result Diagram: 04/25/19 0308 04/25/19 0308 Results 24hrs Laboratory Tests Test 04/25/19 15:59 Free Thyroxine 0.85 Free Triiodothyronine (T3) pg/mL 4.12 Medications Medications Current Medications IV Flush (NS 3 ml) 3 ml PER PROTOCOL IV ; Start 04/24/19 at 20:30 Ondansetron HCl (Zofran Inj) 4 mg Q6H PRN IV NAUSEA/VOMITING; Start 04/24/19 at 20:30 Nitroglycerin (Nitroglycerin (Sl Tab) 0.4 Mg) 1 tab Q5M PRN SL .CHEST PAIN; Start 04/24/19 at 20:30 Acetaminophen (Tylenol Tab) 650 mg Q6H PRN PO .PAIN 1-3 OR TEMP Last administered on 04/25/19at 23:24; Admin Dose 650 MG; Start 04/24/19 at 20:30 Docusate Sodium (Colace) 100 mg Q12H PRN PO .CONSTIPATION; Start 04/24/19 at 20:30 Bisacodyl (Dulcolax) 5 mg DAILY PRN PO .CONSTIPATION; Start 04/24/19 at 20:30 Enoxaparin Sodium (Lovenox) 40 mg DAILY SC ; Start 04/26/19 at 09:00 LOIS COSBY MD Apr 26, 2019 10:04
[2019-04-26] MEDS: ACETAMINOPHEN 325 MG TAB PO PRN (10:19)
--- NOTE | 2019-04-26 11:19 | CONS ---
Assessment/Plan Assessment/Plan Problems: (1) Abnormal results of thyroid function studies Status: Acute Comment: Subclinical hypothyroidism vs. sick euthyroid syndrome. As her acute symptoms did not sound as if they were due to hypothyroidism, no need to treat at this time. Recommend pt. have f/u w/ PMD in 6-8 weeks to recheck her thyroid hormone levels when she is well. If indicates hypothyroidism, may start treatment at that time if pt. and PMD feel it is appropriate. Will sign off for now. Reconsult us prn. Thank you. Consultation Date/Type/Reason Admit Date/Time 04/24/2019 Date of Consultation: Apr 26, 2019 Type of Consult Endocrinology Reason for Consultation elevated TSH Requesting Provider: NO ROJO Date/Time of Note DATE: 04/26/19 TIME: 11:12 Hx of Present Illness 68 y/o H F w/ h/o HTN, asthma, and allergies in [facility] until 4 days ago when she awoke L sided chest pain. Characterized as pressure-like. Subsequently pain radiated to L arm, then L ear and face. Face felt like it was jumping. Next day tried to make appt. w/ her doctor but doctor was not in. Explained her symptoms and they recommended visit to ER. In ER pt. admitted for r/o coronary disease. Pt. found to have TSH 9.43 w/ NL thyroid hormone levels. Endo consulted. Constitutional: no complaints, improved Eyes: no complaints ENT: no complaints Respiratory: no complaints Cardiovascular: chest pain (resolved) Gastrointestinal: no complaints Genitourinary: no complaints Musculoskeletal: no complaints Neurologic: no complaints Past Medical History Medical History: hypertension, other (asthma, allergies) Home Meds Reported Medications Fluticasone Propionate* (Flovent* HFA 110) 12 Gm Inha, 1 PUFF INHALATION BID, #1 INHALER 04/24/19 Amlodipine Besylate* (Norvasc*) 5 Mg Tablet, 5 MG PO DAILY, TAB 04/24/19 Loratadine* (Loratadine*) 10 Mg Tablet, 10 MG PO DAILY, #30 TAB 04/24/19 Fluticasone Propionate* (Fluticasone Propionate* Nasal) 50 Mcg/[place] - 16 Gm [place].susp, 1 SPRAY NASAL DAILY, #1 BOTTLE TO EACH NOSTRIL 04/24/19 Hydrochlorothiazide* (Hydrochlorothiazide*) 25 Mg Tab, 25 MG PO DAILY, #30 TAB 04/24/19 Losartan Potassium* (Losartan Potassium*) 100 Mg Tablet, 100 MG PO DAILY, TAB 04/24/19 Montelukast Sodium* (Montelukast Sodium*) 10 Mg Tablet, 10 MG PO QHS, #30 TAB 04/24/19 Cholecalciferol* (Vitamin D3*) 1,000 Unit Tablet, 1000 UNIT PO DAILY, TAB 04/24/19 Gabapentin* (Gabapentin*) 600 Mg Tablet, 600 MG PO TID, #90 TAB 04/24/19 Amitriptyline Hcl* (Amitriptyline Hcl*) 25 Mg Tablet, 25 MG PO QHS, #30 TAB 04/24/19 Beclomethasone Dipropionate (Qvar Redihaler (80 MCG)) 10.6 Gm Hfa.aeroba, 10.6 GM IH BID, INH 04/24/19 Albuterol Sulfate* (Ventolin HFA*) 18 Gm Hfa.aer.ad, 2 PUFF INHALATION Q4H, #1 INHALER 04/24/19 Discontinued Reported Medications Cholecalciferol (Vitamin D3) (Vitamin D3) 50,000 Unit Capsule, 29332 UNIT PO, CAP Pt takes once a week 01/21/18 Amitriptyline Hcl* (Amitriptyline Hcl*) 25 Mg Tablet, 25 MG PO QHS, #30 TAB 01/21/18 Ibuprofen* (Ibuprofen*) 600 Mg Tablet, 600 MG PO Q8, TAB 01/21/18 Beclomethasone Dip* (Qvar 80*) 7.3 Gm Inha, 2 PUFF INH BID, #1 INHALER 01/21/18 Albuterol Sulfate* (Ventolin HFA*) 18 Gm Hfa.aer.ad, 2 PUFF INHALATION Q4H, #1 INHALER 01/21/18 Gabapentin* (Gabapentin*) 600 Mg Tablet, 600 MG PO TID, #90 TAB 01/21/18 Losartan Potassium* (Losartan Potassium*) 100 Mg Tablet, 100 MG PO DAILY, TAB 01/21/18 Hydrochlorothiazide (Hydrochlorothiazide) 25 Mg Tablet, 25 MG PO DAILY, #30 TAB 01/21/18 Fluticasone Propionate* (Fluticasone Propionate* Nasal) 50 Mcg/[place] - 16 Gm [place].susp, 2 SPRAYS NASAL DAILY, #1 BOTTLE TO EACH NOSTRIL 01/21/18 Omeprazole* (Omeprazole*) 40 Mg Capsule.dr, 40 MG PO DAILY, #30 CAP 01/21/18 Budesonide* (Pulmicort* Flexhaler) 90 Mcg Aer.pow.ba, 1 PUFF INHALATION BID, #1 EA 01/21/18 Loratadine* (Claritin*) 10 Mg Tablet, 10 MG PO DAILY, TAB 11/13/15 Montelukast Sodium* (Singulair*) 10 Mg Tablet, 10 MG PO QHS, #30 TAB 11/13/15 Amlodipine Besylate* (Norvasc*) 5 Mg Tablet, 5 MG PO DAILY, TAB 11/13/15 Discontinued Scripts Mag Hydrox/Al Hydrox/Simeth (Maalox Max Strength Susp) 769 Ml Oral.susp, 30 ML PO QID, #769 Prov:YUAN MORA MD 11/13/15 Medications Current Medications IV Flush (NS 3 ml) 3 ml PER PROTOCOL IV ; Start 04/24/19 at 20:30 Ondansetron HCl (Zofran Inj) 4 mg Q6H PRN IV NAUSEA/VOMITING; Start 04/24/19 at 20:30 Nitroglycerin (Nitroglycerin (Sl Tab) 0.4 Mg) 1 tab Q5M PRN SL .CHEST PAIN; Start 04/24/19 at 20:30 Acetaminophen (Tylenol Tab) 650 mg Q6H PRN PO .PAIN 1-3 OR TEMP Last administered on 04/26/19at 10:19; Admin Dose 650 MG; Start 04/24/19 at 20:30 Docusate Sodium (Colace) 100 mg Q12H PRN PO .CONSTIPATION; Start 04/24/19 at 20:30 Bisacodyl (Dulcolax) 5 mg DAILY PRN PO .CONSTIPATION; Start 04/24/19 at 20:30 Enoxaparin Sodium (Lovenox) 40 mg DAILY SC ; Start 04/26/19 at 09:00 Allergies: Coded Allergies: Penicillins (Verified Allergy, Unknown, 04/24/19) shellfish derived (Verified Allergy, Unknown, "CLOSING OF THE THROAT", ) Uncoded Allergies: SEA FOODS (Allergy, Unknown, 12/19/15) Past Surgical History Past Surgical Hx: cholecystectomy, other (BTL) Family History Significant Family History: no pertinent family hx (specifically denies Fhx of any disease) Social History b. Allan, in [place] since 1979, works as nanny, , 4 children, lives w/ son Alcohol Use: none Smoking Status: Never smoker Drug Use: none Exam/Review of Systems Exam Vitals VS - Last 72 Hours, by Label Date Temp Pulse Resp B/P (MAP) Pulse Ox O2 O2 Flow FiO2 Time Delivery Rate 04/26/19 68 08:01 04/26/19 97.3 66 20 126/71 97 Room Air 07:46 (89) 04/26/19 98.5 65 20 118/55 97 04:08 (76) 04/26/19 64 04:00 04/26/19 64 00:00 04/25/19 98.7 67 20 128/56 96 23:53 (80) 04/25/19 98.2 23:24 04/25/19 78 20:00 04/25/19 98.2 75 20 117/59 95 19:11 (78) 04/25/19 67 17:06 04/25/19 98.3 64 20 137/62 96 Room Air 15:02 (87) 04/25/19 61 12:39 04/25/19 98.6 73 20 129/67 97 Room Air 10:57 (87) 04/25/19 60 08:00 04/25/19 07:39 04/25/19 07:29 04/25/19 98.0 64 20 103/57 97 Room Air 07:26 (72) 04/25/19 59 04:00 04/25/19 97.3 58 18 96/52 (67) 96 03:59 04/25/19 69 01:48 04/25/19 97.7 61 18 110/59 97 Room Air 01:19 (76) 04/24/19 66 18 107/43 97 Room Air 23:30 (64) 04/24/19 57 18 128/67 98 Room Air 20:30 (87) 04/24/19 59 18 96/60 (72) 98 Room Air 18:30 04/24/19 59 18 109/62 96 Room Air 17:55 (78) 04/24/19 63 18 101/51 96 Room Air 16:30 (68) 04/24/19 Nasal 2 15:35 Cannula 04/24/19 73 18 128/54 100 Nasal 2.0 15:30 (78) Cannula 04/24/19 98.5 82 19 130/61 95 14:24 (84) Vital Signs Date Temp Pulse Resp B/P (MAP) Pulse Ox O2 O2 Flow FiO2 Time Delivery Rate 04/26/19 68 08:01 04/26/19 97.3 20 126/71 97 Room Air 07:46 (89) 04/24/19 2 15:35 Intake and Output 04/25/19 04/25/19 04/26/19 1515:00 23:00 07:00 IntakeIntake Total 720 ml BalanceBalance 720 ml Constitutional: alert, oriented, obese Psych: no complaints, nl mood/affect Eyes: nl conjunctiva, EOMI, nl lids, nl sclera, PERRL ENMT: nl external ears & nose, mucosa pink and moist Neck: supple, non-tender; No bruits, No masses, No thyromegaly Respiratory: clear to auscultation, normal air movement Cardiovascular: regular rate and rhythm, nl pulses; No edema, No murmurs/extra sounds, No rub Gastrointestinal: soft, nl liver, spleen, non-tender, bowel sounds; No mass, No rebound or guarding Musculoskeletal: nl extremities to inspection Extremities: normal pulses; No cyanosis, No clubbing, No edema Neurological: DISABILITY INSURANCE CLAIM EXAMINER II-XII intact, nl mental status, nl speech, nl strength Results Result Diagram: 04/25/19 0308 04/25/19 0308 Results 24hrs Laboratory Tests Test 04/25/19 15:59 Free Thyroxine 0.85 Free Triiodothyronine (T3) pg/mL 4.12 Medications Medication Current Medications IV Flush (NS 3 ml) 3 ml PER PROTOCOL IV ; Start 04/24/19 at 20:30 Ondansetron HCl (Zofran Inj) 4 mg Q6H PRN IV NAUSEA/VOMITING; Start 04/24/19 at 20:30 Nitroglycerin (Nitroglycerin (Sl Tab) 0.4 Mg) 1 tab Q5M PRN SL .CHEST PAIN; Start 04/24/19 at 20:30 Acetaminophen (Tylenol Tab) 650 mg Q6H PRN PO .PAIN 1-3 OR TEMP Last administered on 04/26/19at 10:19; Admin Dose 650 MG; Start 04/24/19 at 20:30 Docusate Sodium (Colace) 100 mg Q12H PRN PO .CONSTIPATION; Start 04/24/19 at 20:30 Bisacodyl (Dulcolax) 5 mg DAILY PRN PO .CONSTIPATION; Start 04/24/19 at 20:30 Enoxaparin Sodium (Lovenox) 40 mg DAILY SC ; Start 04/26/19 at 09:00 KRISTAL STEPHENS MD Apr 26, 2019 11:19
--- NOTE | 2019-04-26 13:49 | PDOCDIS ---
Discharge Instructions DIAGNOSIS Discharge Diagnosis 1. Chest pain- rule out ACS and PE 2. Subclinical Hypothyroidism vs. sick euthyroid syndrome 3. Hypertension 4. Asthma CONDITION [id number] Patient Condition: [id number] Stable FOLLOW UP/APPOINTMENTS Follow-up Plan 1. Follow up with your primary care provider in one week Follow up for check up on your thyroid with your primary care provider. DEBORAH FUNG NP Apr 26, 2019 13:49
--- NOTE | 2019-04-26 15:33 | ERA ---
DATE OF SERVICE: [facility] 1. Baseline EKG reveals normal sinus rhythm. 2. Normal clinical response. 3. No EKG changes consistent with ischemia. 4. No arrhythmias. 5. Imaging results are pending. Dictated By: LOIS COSBY MD MS/BUCK Conf#: [id number] DID#: [id number] CC: DEEPTHI KIMBLE MD;*End*
--- NOTE | 2019-04-26 20:15 | DS ---
Date/Time of Note Date/Time of Note DATE: 04/26/19 TIME: 20:10 Discharge Summary Admission/Discharge Info Admit Date/Time Apr 26, 2019 at 08:27 Discharge Date/Time Apr 26, 2019 at 15:22 Discharge Diagnosis 1. Chest pain- rule out ACS and PE 2. Subclinical Hypothyroidism vs. sick euthyroid syndrome 3. Hypertension 4. Asthma Patient Condition: Stable Consults 1. Dr. Skye Gallegos Hospital Course This is a 68-year-old female with history of hypertension and asthma who came to the hospital due to reports of left-sided chest pain with radiation down to her left arm as well as her jaw. She had associated numbness and tingling with the symptoms. As such she was brought to the hospital for further evaluation. We did rule out for ACS. She did have troponin markers drawn which were all negative. She was seen by children's book author given her medical history. She had a VQ scan that showed low probability for pulmonary embolism. She had a cardiac s tress test that showed no evidence of perfusion defects are wall motion abnormalities and EF at stress is greater than 70%. Pain is likely musculoskeletal in origin. Her chest pain did resolve. During her course of stay she did improve. On lab results she was noted with elevated TSH. She was evaluated by steno pool supervisor and after review patient was likely with subclinical hypothyroidism versus sick euthyroid syndrome. Her free T4 and free T3 were within normal limits. She was advised outpatient follow-up with her primary care physician for follow-up with her thyroid levels. We did resume her other home medications for hypertension and liver no active bronchospasms noted. The plan of care was discussed with the patient and patient verbalized understa nding. On the day of discharge patient was in stable condition Discussed plan of care with Dr. Arshad Canaan Meds Reported Medications Fluticasone Propionate* (Flovent* HFA 110) 12 Gm Inha, 1 PUFF INHALATION BID, #1 INHALER 04/24/19 Amlodipine Besylate* (Norvasc*) 5 Mg Tablet, 5 MG PO DAILY, TAB 04/24/19 Loratadine* (Loratadine*) 10 Mg Tablet, 10 MG PO DAILY, #30 TAB 04/24/19 Fluticasone Propionate* (Fluticasone Propionate* Nasal) 50 Mcg/[place] - 16 Gm [place].susp, 1 SPRAY NASAL DAILY, #1 BOTTLE TO EACH NOSTRIL 04/24/19 Hydrochlorothiazide* (Hydrochlorothiazide*) 25 Mg Tab, 25 MG PO DAILY, #30 TAB 04/24/19 Montelukast Sodium* (Montelukast Sodium*) 10 Mg Tablet, 10 MG PO QHS, #30 TAB 04/24/19 Cholecalciferol* (Vitamin D3*) 1,000 Unit Tablet, 1000 UNIT PO DAILY, TAB 04/24/19 Gabapentin* (Gabapentin*) 600 Mg Tablet, 600 MG PO TID, #90 TAB 04/24/19 Amitriptyline Hcl* (Amitriptyline Hcl*) 25 Mg Tablet, 25 MG PO QHS, #30 TAB 04/24/19 Beclomethasone Dipropionate (Qvar Redihaler (80 MCG)) 10.6 Gm Hfa.aeroba, 10.6 GM IH BID, INH 04/24/19 Albuterol Sulfate* (Ventolin HFA*) 18 Gm Hfa.aer.ad, 2 PUFF INHALATION Q4H, #1 INHALER 04/24/19 Discontinued Reported Medications Losartan Potassium* (Losartan Potassium*) 100 Mg Tablet, 100 MG PO DAILY, TAB 04/24/19 Cholecalciferol (Vitamin D3) (Vitamin D3) 50,000 Unit Capsule, 22384 UNIT PO, CAP Pt takes once a week 01/21/18 Amitriptyline Hcl* (Amitriptyline Hcl*) 25 Mg Tablet, 25 MG PO QHS, #30 TAB 01/21/18 Ibuprofen* (Ibuprofen*) 600 Mg Tablet, 600 MG PO Q8, TAB 01/21/18 Beclomethasone Dip* (Qvar 80*) 7.3 Gm Inha, 2 PUFF INH BID, #1 INHALER 01/21/18 Albuterol Sulfate* (Ventolin HFA*) 18 Gm Hfa.aer.ad, 2 PUFF INHALATION Q4H, #1 INHALER 01/21/18 Gabapentin* (Gabapentin*) 600 Mg Tablet, 600 MG PO TID, #90 TAB 01/21/18 Losartan Potassium* (Losartan Potassium*) 100 Mg Tablet, 100 MG PO DAILY, TAB 01/21/18 Hydrochlorothiazide (Hydrochlorothiazide) 25 Mg Tablet, 25 MG PO DAILY, #30 TAB 01/21/18 Fluticasone Propionate* (Fluticasone Propionate* Nasal) 50 Mcg/[place] - 16 Gm [place].susp, 2 SPRAYS NASAL DAILY, #1 BOTTLE TO EACH NOSTRIL 01/21/18 Omeprazole* (Omeprazole*) 40 Mg Capsule.dr, 40 MG PO DAILY, #30 CAP 01/21/18 Budesonide* (Pulmicort* Flexhaler) 90 Mcg Aer.pow.ba, 1 PUFF INHALATION BID, #1 EA 01/21/18 Loratadine* (Claritin*) 10 Mg Tablet, 10 MG PO DAILY, TAB 11/13/15 Montelukast Sodium* (Singulair*) 10 Mg Tablet, 10 MG PO QHS, #30 TAB 11/13/15 Amlodipine Besylate* (Norvasc*) 5 Mg Tablet, 5 MG PO DAILY, TAB 11/13/15 Discontinued Scripts Mag Hydrox/Al Hydrox/Simeth (Maalox Max Strength Susp) 769 Ml Oral.susp, 30 ML PO QID, #769 Prov:YUAN MORA MD 11/13/15 Follow-up Plan 1. Follow up with your primary care provider in one week Follow up for check up on your thyroid with your primary care provider. Primary Care Provider Not On Staff Doctor DEBORAH FUNG NP Apr 26, 2019 20:15
== END 2019-04-26 15:22 | disposition home or self-care (01) | DRG 311 ==
LOC: E/R 14:22 → TEL 18:53 → OBSVTOIN 04-26 08:27
PROVIDERS: ADMIT Family Medicine; ATTEND Family Medicine
DX: I24.9 Acute ischemic heart disease, unspecified (principal); R79.1 Abnormal coagulation profile; I10 Essential (primary) hypertension; J45.909 Unspecified asthma, uncomplicated; E07.81 Sick-euthyroid syndrome; Z88.0 Allergy status to penicillin
CPT/HCPCS: 36415; 71045; 78452; 78582; 80048; 80053; 80061; 82550; 82553; 83036; 83735; 84436; 84439; 84443; 84479; 84481; 84484; 85025; 85378; 85610; 85730; 93005; 93017; 93306; 93970; 96374; 96375; G0378; A9500; A9505; A9540; J1650; J2270; J2405; J2785; J7040; Q9967